=== PATIENT | female | born 1975 | race Two or more races ===

== ENCOUNTER 2017-08-02 19:08 | Emergency (ER) | payer OTHER ==
[~2017-08-02] VITALS: Ht 162.6 cm; Wt 61.2 kg
[2017-08-02] MEDS ORDERED: LORazepam Inj 2mg/ml 1ml IM ONE ×2 (19:45→20:00)
--- NOTE | 2017-08-02 19:45 | Emergency Room Report ---
History of Present Illness General Chief Complaint: Lower Extremity Injury Source: Patient Present Illness HPI 41-year-old female presents emergency department with family who are the caregivers of this patient. Patient has significant developmental delay and is nonverbal. Family members noticed the patient was limping and has a swollen left ankle they are not sure if she fell or if she hit her foot against something but they would like it to be evaluated. They report some grimacing with walking or palpation. History of present illness and ROS are limited due to patient mental status. Allergies: Coded Allergies: No Known Allergies (Unverified , 08/02/17) Patient History Past Medical History: see triage record Past Surgical History: none Pertinent Family History: none Now: No Reviewed Nursing Documentation: PMH: Agreed; PSxH: Agreed Nursing Documentation-PMH Past Medical History: No History, Except For Review of Systems All Other Systems: limited Physical Exam Vital Signs Date Time Temp Pulse Resp B/P (MAP) Pulse Ox O2 Delivery O2 Flow Rate FiO2 08/02/17 19:24 0 0 0/0 0 Sp02 EP Interpretation: reviewed, normal General Appearance: no apparent distress, alert, GCS 15, non-toxic Head: normocephalic, atraumatic ENT: hearing grossly normal, normal voice Neck: full range of motion Respiratory: lungs clear, normal breath sounds, speaking full sentences Cardiovascular #1: regular rate, rhythm, normal capillary refill Musculoskeletal: back normal, gait/station normal, normal range of motion, swelling - left lateral proximal foot and ankle., tender - left lateral proximal foot and ankle. Neurologic: alert, oriented x3, responsive, motor strength/tone normal, sensory intact, speech normal, grossly normal Psychiatric: judgement/insight normal Skin: normal color, no rash, warm/dry, well hydrated, other - no bruises Medical Decision Making PA Attestation Dr. Raya is my supervising Physician whom patient management has been discussed with. Diagnostic Impression: Primary Impression: Ankle fracture, left Qualified Codes: S82.892A - Other fracture of left lower leg, initial encounter for closed fracture ER Course 41-year-old female presents emergency department with family who are the caregivers of this patient. Patient has significant developmental delay and is nonverbal. Family members noticed the patient was limping and has a swollen left ankle they are not sure if she fell or if she hit her foot against something but they would like it to be evaluated. They report some grimacing with walking or palpation. History of present illness and ROS are limited due to patient mental status. Ddx considered but are not limited to Fracture, dislocation, contusion, Sprain/ Strain/Spasm just to name a few. Vital signs: are WNL, pt. is afebrile H&PE are most consistent with musculoskeletal injury will perform imaging to r/ o fractures/dislocations. ORDERS: - X-ray Left foot and ankle 3 views each - negative for fx, Dislocation, or significant soft tissue injury, per preliminary read in ED, and signed by VONDA Daugherty, my supervising physician has reviewed, and agrees with my interpretation. ED INTERVENTIONS: - Ativan 0.5 IM - caregivers changed their mind - Air Splint to the left ankle applied by eligibility technician. Pt. remains neurovascularly intact. DISCHARGE: At this time pt. is stable for d/c to home. Will provide printed patient care instructions, and any necessary prescriptions. Care plan and follow up instructions have been discussed with the patient prior to discharge. Other X-Ray Diagnostic Results Other X-Ray Diagnostic Results : X-Ray ordered: Left Ankle # of Views/Limited Vs Complete: 3 View Indication: Pain EP Interpretation: Yes VONDA Xray: Interpretation reviewed, by supervising MD, and agrees with findings. Interpretation: no dislocation, other - distal fibula fx. non displaced Impression: Other - abnormal: fx. Electronically Signed by: Herlinda Daugherty PA-C Last Vital Signs Date Time Temp Pulse Resp B/P (MAP) Pulse Ox O2 Delivery O2 Flow Rate FiO2 08/02/17 19:24 0 0 0/0 0 Disposition: HOME, SELF-CARE Condition: Stable Scripts Ibuprofen* (MOTRIN*) 600 Mg Tablet 600 MG ORAL THREE TIMES A DAY, #20 TAB 0 Refills Prov: Herlinda Daugherty PFelicity. 08/02/17 Patient Instructions: Ankle Fracture Additional Instructions: Take medications as directed. Follow up with a Primary Care Provider in 3-5 days, even if your symptoms have resolved. --Please review list of primary care clinics, if you do not already have a primary care provider Return sooner to ED if new symptoms occur, or current symptoms become worse. - Please note that this Emergency Department Report was dictated using [employer] president payer technology software, occasionally this can lead to erroneous entry secondary to interpretation by the dictation equipment. Herlinda Daugherty Aug 02, 2017 19:45
[2017-08-02] MEDS ORDERED: IBUPROFEN600 MG ORAL (20:05)
[2017-08-02 20:19] VITALS: BP 0/0
--- NOTE | 2017-08-03 10:55 | Diagnostic Imaging Report ---
Indications: Reason For Exam: PAIN Indication: Ankle pain Technique: 2 views of the left ankle Comparison: none Findings: There is a transverse minimally distracted fracture of the tip of the distal fibula. There is overlying soft tissue swelling. No other acute fractures. No dislocations. Impression: Positive for nondisplaced distal fibular fracture This agrees with the preliminary interpretation provided by the emergency room physician
== END 2017-08-02 20:20 | disposition home or self-care (01) ==
LOC: EMR 19:44
DX: S82.492A Other fracture of shaft of left fibula, initial encounter for closed fracture (principal); X58.XXXA Exposure to other specified factors, initial encounter; Y92.9 Unspecified place or not applicable
CPT/HCPCS: 96372; 99283